=== PATIENT | female | born 1960 | race Caucasian/White ===

== ENCOUNTER 2016-07-24 20:56 | Emergency (ER) | payer OTHER ==
[~2016-07-24] VITALS: Ht 152.4 cm; Wt 66.0 kg
[~2016-07-24 20:56] MED LIST: VERA120T3 OR
[2016-07-24 20:58] VITALS: BP 198/108; PULSE 66; RESP 16; TEMP 98.1; O2SAT 96
[2016-07-25] MEDS ORDERED: ONDANSETRON HCL 4 MG/2 ML VIAL IV PUSH ONE
[2016-07-25] MEDS ORDERED: MORPHINE SULFATE 4 MG/ML INJ IV PUSH ONE
--- NOTE | 2016-07-25 00:48 | PD ---
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 States it is throbbing with photophobia and nausea. Denies it feels like her usual migraine. Took imitrex at home with no relieve. Pt requesting dilaudid but states morphine helps as well. States she is allergic to toradol. Pt has a neurologist that she can follow up with. 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) Hypertension: Yes Neurologic: Yes (AREVALO'S PALSY) Migraines: Yes Tetanus Vaccination: Unknown Influenza Vaccination: Yes ?: Not : 3 Para: 1 : 2 Tubal Ligation: Yes (2000) Past Surgical History Body Medical Devices: SUICIDAL IDEATIONS Hysterectomy: Yes Social History Alcohol Use: No Tobacco Use: Yes (06/25 PPD) Substance Use: No Allergies-Medications (Allergen,Severity, Reaction): Coded Allergies: Aspirin (Verified Allergy, Mild, 07/24/16) Ergotamine Tartrate (Verified Allergy, Mild, 07/24/16) Sulfa (Verified Allergy, Mild, 07/24/16) Toradol (Verified Allergy, Mild, 07/24/16) Reported Meds & Prescriptions Reported Meds & Active Scripts Active Review of Systems Except as stated in HPI: all other systems reviewed are Neg Physical Exam Narrative GENERAL: 56yo F not in distress. SKIN: Warm and dry. HEAD: Atraumatic. Normocephalic. EYES: Pupils 5mm and reactive to light bilaterally. ENT: No nasal bleeding or discharge. Mucous membranes pink and moist. NECK: Trachea midline. No JVD. CARDIOVASCULAR: Regular rate and rhythm. No murmur appreciated. RESPIRATORY: No accessory muscle use. Clear to auscultation. Breath sounds equal bilaterally. GASTROINTESTINAL: Abdomen soft, non-tender, nondistended. Hepatic and splenic margins not palpable. MUSCULOSKELETAL: No obvious deformities. No clubbing. No cyanosis. No edema. NEUROLOGICAL: Awake and alert. Pt with left arevalo's palsy which she stated has not changed for months and is somewhat improving. Muscle strength 5/5 in all extremities. Sensation intact. PSYCHIATRIC: Appropriate mood and affect; insight and judgment normal. Data Data Last Documented VS Vital Signs Date Time Temp Pulse Resp B/P Pulse Ox O2 Delivery O2 Flow Rate FiO2 07/24/16 23:45 54 16 99 Room Air 07/24/16 20:58 98.1 198/108 Orders Morphine Inj (Morphine Inj) (07/25/16 00:00) Ondansetron Inj (Zofran Inj) (07/25/16 00:00) Hydralazine Inj (Apresoline Inj) (07/25/16 01:00) MDM Medical Decision Making Medical Screen Exam Complete: Yes Emergency Medical Condition: Yes Differential Diagnosis Migraine headache vs. tension headache vs. malingering Narrative Course 56yo F with headache that feels like her usual migraine headache. Pt given morphine 4mg and zofran 4mg IV and headache has resolved. No red flags. Pt has neurologist that she can follow up as outpatient. BP was 149/94 before any medication so no blood pressure medication given. Diagnosis Primary Impression: Migraine headache Qualified Code: G43.909 - Migraine without status migrainosus, not intractable , unspecified migraine type Patient Instructions: General Instructions Departure Forms: Tests/Procedures Additional Instructions: Please follow up with your neurologist in 1-2 days. Return to the ED if symptoms worsen. Med/Other Pt SpecificInfo: Prescription(s) given Scripts Acetaminophen-Codeine (Tylenol-Codeine #3)300-30 mg Tab1 Tab PO Q6HR PRN (PAIN) #7 TAB Ref 0 Prov:Kennedi Humphreys DO 07/25/16 Promethazine (Phenergan)25 Mg Tab25 Mg PO Q6H PRN (Nausea/Vomiting) #10 TAB Ref 0 Prov:Kennedi Humphreys DO 07/25/16 Disposition: 01 DISCHARGE HOME Condition: Stable Kennedi Humphreys DO Jul 25, 2016 00:48
[2016-07-25 00:57] VITALS: BP 149/94; PULSE 53; RESP 16; O2SAT 97
[2016-07-25] MEDS ORDERED: hydrALAZINE HCL 20 MG/ML VIAL IV PUSH ONE (01:00)
[2016-07-25] MEDS ORDERED: TYLETAB34 PO (01:00)
[2016-07-25] MEDS ORDERED: PROM25TA5 PO (01:00)
== END 2016-07-25 01:23 | disposition home or self-care (01) ==
LOC: NEPA 20:56
DX: G43.909 Migraine, unspecified, not intractable, without status migrainosus (principal)
CPT/HCPCS: 96374; 96375; 99283; J2270; J2405

== ENCOUNTER 2016-08-02 15:21 | Emergency (ER) | payer OTHER ==
[~2016-08-02] VITALS: Ht 157.5 cm; Wt 68.0 kg
[~2016-08-02 15:21] MED LIST changes: +PROM25TA5 PO; +TYLETAB34 PO; -VERA120T3 OR
[2016-08-02 15:22] VITALS: BP 181/103; PULSE 76; RESP 14; TEMP 98.2; O2SAT 95
[2016-08-02] MEDS ORDERED: SODIUM CHLORIDE 0.9% FLUSH 5 ML FLUSH IVF PRN (16:00)
[2016-08-02] MEDS ORDERED: MORPHINE SULFATE 8 MG/ML INJ IV PUSH ONE (16:00)
[2016-08-02] MEDS ORDERED: PROMETHAZINE INJ 25 MG/ML VIAL IM ONE (16:00)
--- NOTE | 2016-08-02 16:06 | PD ---
HPI Chief Complaint: Headache Time Seen by Provider: 16:04 Travel History International Travel<30 days: No Contact w/Intl Traveler<30days: No Traveled to known affect area: No History of Present Illness HPI 56-year-old female coming in with history of Arevalo's palsy on the left as well as migraine syndrome, presents with sided headache since 3 AM this morning which is gotten progressively worse through the day. Patient denies nausea, vomiting, or visual changes. No specific neurological deficit is noted , although the Arevalo's palsy is present on the left. Patient has positive photophobia which is typical for her migraines, and is claiming that the states a "cluster headache" that began as a migraine. Patient is noted to be somewhat hypertensive with a blood pressure 180/110. She states her pain is a 10 over 10 which is unusual for her. She states Phenergan usually works for her headache issues. She denies any recent illness, no fever, chills, or other constitutional symptoms. She has allergies to aspirin, ergotamine, sulfa, and Toradol. 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) Hypertension: Yes Neurologic: Yes (AREVALO'S PALSY) Migraines: Yes ?: Not : 3 Para: 1 : 2 Tubal Ligation: Yes (2000) Past Surgical History Body Medical Devices: SUICIDAL IDEATIONS Hysterectomy: Yes Social History Alcohol Use: No Tobacco Use: Yes (06/25 PPD) Substance Use: No Allergies-Medications (Allergen,Severity, Reaction): Coded Allergies: Aspirin (Verified Allergy, Mild, 08/02/16) Ergotamine Tartrate (Verified Allergy, Mild, 08/02/16) Sulfa (Verified Allergy, Mild, 08/02/16) Toradol (Verified Allergy, Mild, 08/02/16) Reported Meds & Prescriptions Reported Meds & Active Scripts Active Reported Geodon (Ziprasidone) 80 Mg Cap Unknown Dose PO BID Klonopin (Clonazepam) 0.5 Mg Tab 0.5 Mg PO TID Physical Exam Narrative GENERAL: Patient appears in moderate distress. SKIN: Warm and dry. Normal color. Normal turgor. HEAD: Atraumatic. Normocephalic. Patient placed headache is not reproducible with palpation or percussion. EYES: Pupils equal and round. Patient has positive photophobia. No scleral icterus. No injection or drainage. ENT: No nasal bleeding or discharge. Mucous membranes pink and moist. Pharynx is normal. Airway is patent. TMs are clear. No sinus pain with palpation or percussion. NECK: Trachea midline. No JVD. Supple and nontender. CARDIOVASCULAR: Regular rate and rhythm. RESPIRATORY: No accessory muscle use. Clear to auscultation. Breath sounds equal bilaterally. GASTROINTESTINAL: Abdomen soft, non-tender, nondistended. Hepatic and splenic margins not palpable. MUSCULOSKELETAL: Extremities without clubbing, cyanosis, or edema. No obvious deformities. NEUROLOGICAL: Awake and alert. Patient is mild left-sided facial droop which she states is chronic from previous Arevalo's Palsy. Motor grossly within normal limits. Five out of 5 muscle strength in the arms and legs. Normal speech. PSYCHIATRIC: Appropriate mood and affect; insight and judgment normal. Data Data Last Documented VS Vital Signs Date Time Temp Pulse Resp B/P Pulse Ox O2 Delivery O2 Flow Rate FiO2 08/02/16 19:12 60 18 123/73 95 Nasal Cannula 2 08/02/16 15:22 98.2 Orders Complete Blood Count With Diff (08/02/16 15:54) Comprehensive Metabolic Panel (08/02/16 15:54) Prothrombin Time / Inr (Pt) (08/02/16 15:54) Act Partial Throm Time (Ptt) (08/02/16 15:54) Ct Brain W/O Iv Contrast(Rout) (08/02/16 15:54) Ecg Monitoring (08/02/16 15:54) Iv Access Insert/Monitor (08/02/16 15:54) Oximetry (08/02/16 15:54) Sodium Chloride 0.9% Flush (Ns Flush) (08/02/16 16:00) Morphine Inj (Morphine Inj) (08/02/16 16:00) Promethazine Inj (Phenergan Inj) (08/02/16 16:00) Hydromorphone Pf Inj (Dilaudid Pf Inj) (08/02/16 17:30) Ondansetron Inj (Zofran Inj) (08/02/16 18:30) Prochlorperazine Inj (Compazine Inj) (08/02/16 18:30) Diphenhydramine Inj (Benadryl Inj) (08/02/16 18:30) Hydromorphone Pf Inj (Dilaudid Pf Inj) (08/02/16 18:30) Labs Laboratory Tests Test 08/02/16 16:20 White Blood Count 11.1 TH/MM3 Red Blood Count 3.61 MIL/MM3 Hemoglobin 12.7 GM/DL Hematocrit 35.6 % Mean Corpuscular Volume 98.7 FL Mean Corpuscular Hemoglobin 35.3 PG Mean Corpuscular Hemoglobin 35.7 % Concent Red Cell Distribution Width 12.9 % Platelet Count 295 TH/MM3 Mean Platelet Volume 8.7 FL Neutrophils (%) (Auto) 66.7 % Lymphocytes (%) (Auto) 24.0 % Monocytes (%) (Auto) 6.2 % Eosinophils (%) (Auto) 2.1 % Basophils (%) (Auto) 1.0 % Neutrophils # (Auto) 7.4 TH/MM3 Lymphocytes # (Auto) 2.7 TH/MM3 Monocytes # (Auto) 0.7 TH/MM3 Eosinophils # (Auto) 0.2 TH/MM3 Basophils # (Auto) 0.1 TH/MM3 CBC Comment DIFF FINAL Differential Comment Prothrombin Time 10.1 SEC Prothromb Time International 0.9 RATIO Ratio Activated Partial 29.2 SEC Thromboplast Time Sodium Level 130 MEQ/L Potassium Level 4.1 MEQ/L Chloride Level 95 MEQ/L Carbon Dioxide Level 25.6 MEQ/L Anion Gap 9 MEQ/L Blood Urea Nitrogen 6 MG/DL Creatinine 0.85 MG/DL Estimat Glomerular Filtration 69 ML/MIN Rate Random Glucose 85 MG/DL Calcium Level 8.4 MG/DL Total Bilirubin 0.2 MG/DL Aspartate Amino Transf 19 U/L (AST/SGOT) Alanine Aminotransferase 22 U/L (ALT/SGPT) Alkaline Phosphatase 140 U/L Total Protein 7.1 GM/DL Albumin 3.3 GM/DL [facility] Medical Decision Making Medical Screen Exam Complete: Yes Emergency Medical Condition: Yes Differential Diagnosis Migraine. Headache. Intracranial bleed. Nausea. Narrative Course Patient is felt to be medically stable at time of exam. Patient is discussed with Dr. Jefferson. She labs ordered including CBC, and CMP. CT of the head is ordered. Patient is given 25 mg Phenergan IM. IV access is obtained patient is given [address] of the head shows no acute process per radiology. 1700 hrs. patient is reassessed and felt to be improved in terms of her nausea, but her headache remains an 8/10. Patient is given 1 mg Dilaudid IV. 1815 hrs. patient is reassessed with little improvement in her headache. There remains an 8/10. She states her nausea is return. I questioned the patient about sumatriptan which she states she took her 2 doses earlier today. Patient is given 25 mg Benadryl IV, 4 mg IV Zofran, and milligrams Compazine IV , and an additional 1 mg hydromorphone IV. Patient is monitored for 1 hour, and reexamined and felt to be stable for discharge. Diagnosis Primary Impression: Migraine headache Qualified Code: G43.009 - Migraine without aura and without status migrainosus , not intractable Referrals: Neurologist Patient Instructions: Narcotic given in the ED, General Instructions Med/Other Pt SpecificInfo: No Change to Meds Disposition: 01 DISCHARGE HOME Condition: Stable Terry Walters Aug 02, 2016 16:06
[2016-08-02] MEDS ORDERED: GEOD80CA PO (16:12)
[2016-08-02] MEDS ORDERED: CLON.5 PO (16:12)
[2016-08-02 16:33] LABS: AUTOMATED NEUTROPHIL # 7.4 TH/MM3 (1.8-7.7); BASOPHIL # 0.1 TH/MM3 (0-0.2); EOSINOPHIL # 0.2 TH/MM3 (0-0.4); EOSINOPHIL % 2.1 % (0.0-4.0); HEMATOCRIT 35.6 % (35.0-46.0); HEMO FLAGS DIFF FINAL; LYMPHOCYTE # 2.7 TH/MM3 (1.0-4.8); MEAN CELL VOLUME 98.7 FL (80.0-100.0); MEAN CORPUSCULAR HEMOGLOBIN 35.3 PG (27.0-34.0); MEAN CORPUSCULAR HGB CONC 35.7 % (32.0-36.0); MONO % 6.2 % (0.0-8.0); NEUT % 66.7 % (16.0-70.0); PLATELET COUNT 295 TH/MM3 (150-450); RED BLOOD COUNT 3.61 MIL/MM3 (4.00-5.30); RED CELL DISTRIBUTION WIDTH 12.9 % (11.6-17.2); WHITE BLOOD COUNT 11.1 TH/MM3 (4.0-11.0)
--- NOTE | 2016-08-02 16:34 | RADRPT ---
EXAM DATE/TIME: 08/02/2016 16:25 [facility] COMPARISON: No previous studies available for comparison. INDICATIONS : Left sided facial droop for 10 days; cephalgia today. RADIATION DOSE: 43.05 CTDIvol (mGy) MEDICAL HISTORY : Hypertension. Diabetes mellitus type 2. Penrose palsy. SURGICAL HISTORY : None. ENCOUNTER: Initial ACUITY: 2 weeks PAIN SCALE: 3/10 LOCATION: cranial TECHNIQUE: Multiple contiguous axial images were obtained of the head. Using automated exposure control and adjustment of the mA and/or kV according to patient size, radiation dose was kept as low as reasonably achievable to obtain optimal diagnostic quality images. FINDINGS: CEREBRUM: The ventricles are normal for age. No evidence of midline shift, mass lesion, hemorrha ge or acute infarction. No extra-axial fluid collections are seen. POSTERIOR FOSSA: The cerebellum and brainstem are intact. The 4th ventricle is midline. The cer ebellopontine angle is unremarkable. EXTRACRANIAL: The visualized portion of the orbits is intact. SKULL: The calvaria is intact. No evidence of skull fracture. CONCLUSION: Unremarkable noncontrast study. Rangel Stevens MD on August 02, 2016 at 16:30 Board Certified Radiologist. This report was verified electronically.
[2016-08-02 16:40] VITALS: BP 157/103; PULSE 62; RESP 14; O2SAT 95
[2016-08-02 16:46] LABS: APTT (PATIENT) 29.2 SEC (24.3-30.1); INTERNATIONAL NORMALIZED RATIO 0.9 RATIO; PROTHROMBIN TIME - PATIENT 10.1 SEC (9.8-11.6)
[2016-08-02 17:17] LABS: ANION GAP 9 MEQ/L (5-15); BICARBONATE 25.6 MEQ/L (21.0-32.0); BLOOD UREA NITROGEN 6 MG/DL (7-18); CHLORIDE 95 MEQ/L (98-107); GLOMERULAR FILTRATION RATE 69 ML/MIN (>89); POTASSIUM 4.1 MEQ/L (3.5-5.1); SODIUM (NA) 130 MEQ/L (136-145)
[2016-08-02 17:20] LABS: ALKALINE PHOSPHATASE 140 U/L (45-117); ALT (GPT) 22 U/L (10-53); AST (GOT) 19 U/L (15-37); TOTAL BILIRUBIN ADULT 0.2 MG/DL (0.2-1.0)
[2016-08-02] MEDS ORDERED: HYDROmorphone HCL PF 1 MG/ML VIAL IV PUSH ONE (17:30)
[2016-08-02 18:00] VITALS: BP 169/107; PULSE 61; RESP 14; O2SAT 95
[2016-08-02 18:30] VITALS: BP 133/95; PULSE 61; RESP 14; O2SAT 95
[2016-08-02] MEDS ORDERED: PROCHLORPERAZINE INJ 10 MG/2 ML VIAL IVP ONE (18:30)
[2016-08-02] MEDS ORDERED: HYDROmorphone HCL PF 1 MG/ML VIAL IVS ONE (18:30)
[2016-08-02] MEDS ORDERED: ONDANSETRON HCL 4 MG/2 ML VIAL IVP ONE (18:30)
[2016-08-02] MEDS ORDERED: diphenhydrAMINE HCL 50 MG/ML VIAL IVP ONE (18:30)
[2016-08-02 19:12] VITALS: BP 123/73; PULSE 60; RESP 18; O2SAT 95
[2016-08-03] MEDS ORDERED: SUMA6P SQ (07:47)
== END 2016-08-02 19:39 | disposition home or self-care (01) ==
LOC: NEPB 15:21
DX: G43.009 Migraine without aura, not intractable, without status migrainosus (principal); G51.0 Bell's palsy; H53.149 Visual discomfort, unspecified; I10 Essential (primary) hypertension; E11.9 Type 2 diabetes mellitus without complications; F17.210 Nicotine dependence, cigarettes, uncomplicated
CPT/HCPCS: 70450; 80053; 85025; 85610; 85730; 96372; 96374; 96375; 96376; 99284; J0780; J1170; J1200; J2270; J2405; J2550

== ENCOUNTER 2016-08-03 07:19 | Observation (INO) | payer OTHER ==
[~2016-08-03] VITALS: Ht 160 cm; Wt 66.0 kg
[2016-08-03] VITALS (7 sets, daily range): BP systolic 130–181; BP diastolic 73–96; PULSE 60–91; RESP 15–20; TEMP 97.7–98.2; O2SAT 71–100
[~2016-08-03 07:19] MED LIST changes: +CLON.5 PO; +GEOD80CA PO; -PROM25TA5 PO; -TYLETAB34 PO
[2016-08-03] MEDS ORDERED: SODIUM CHLOR 0.9% 1000 ML INJ 1,000 ML IV SCH (07:46)
[2016-08-03] MEDS ORDERED: SUMA6P SQ (07:47)
--- NOTE | 2016-08-03 07:59 | PD ---
HPI Chief Complaint: Headache Time Seen by Provider: 07:41 Travel History International Travel<30 days: No Contact w/Intl Traveler<30days: No Traveled to known affect area: No History of Present Illness HPI 56-year-old female with history of migraine headaches, Arita's palsy, here for evaluation of migraine headache. The patient states that she gets daily migraines and takes Imitrex for them. Pain is typical for her usual migraine, described as a stabbing sensation behind her right eye that radiates over her right head. She tried taking her Imitrex, however did not have any relief of the pain. Pain is severe, constant, associated with photophobia and nausea. Not thunderclap in onset. This is the patient's third visit in the last 10 days for migraine headache. She was seen in the emergency department yesterday and had a CT head which was unremarkable. She was treated in the emergency department and discharged home. She denies fevers or chills. Arita's palsy noted on previous visits with left facial droop. She has a neurologist at the [place] [facility] with whom she has a follow-up appointment within 2 weeks. 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) Hypertension: Yes Neurologic: Yes (ARITA'S PALSY) Migraines: Yes Tetanus Vaccination: > 5 Years : 3 Para: 1 Miscarriage: 0 : 2 Tubal Ligation: Yes (2000) Past Surgical History Surgical History: No Previous Surgery Body Medical Devices: SUICIDAL IDEATIONS Gynecologic Surgery: Yes (TUBAL LIGATION) Hysterectomy: Yes (TUBAL LIGATION) Social History Alcohol Use: No Tobacco Use: No (WEARS A PATCH ) Substance Use: No Allergies-Medications (Allergen,Severity, Reaction): Coded Allergies: Aspirin (Verified Allergy, Mild, 08/03/16) Ergotamine Tartrate (Verified Allergy, Mild, 08/03/16) Sulfa (Verified Allergy, Mild, 08/03/16) Toradol (Verified Allergy, Mild, 08/03/16) Reported Meds & Prescriptions Reported Meds & Active Scripts Active Reported Imitrex Inj (Sumatriptan Succinate) 6 Mg/0.5 Ml Inj 6 Mg SQ ONCE PRN May repeat dose in 1 hour if needed. Geodon (Ziprasidone) 80 Mg Cap Unknown Dose PO BID Klonopin (Clonazepam) 0.5 Mg Tab 0.5 Mg PO TID Review of Systems Except as stated in HPI: all other systems reviewed are Neg Physical Exam Narrative GENERAL: Well-developed, well-nourished, awake, alert, acute size closed, no acute distress. SKIN: Warm and dry. HEAD: Atraumatic. Normocephalic. EYES: Pupils equal, round, 3 mm, reactive to light. No scleral icterus. No injection or drainage. ENT: No nasal bleeding or discharge. Mucous membranes pink and moist. NECK: Trachea midline. No JVD. No nuchal rigidity. CARDIOVASCULAR: Regular rate and rhythm. RESPIRATORY: No accessory muscle use. Clear to auscultation. Breath sounds equal bilaterally. GASTROINTESTINAL: Abdomen soft, non-tender, nondistended. MUSCULOSKELETAL: No obvious deformities. No clubbing. No cyanosis. No edema. NEUROLOGICAL: Awake and alert. Left facial droop. Motor grossly within normal limits. Normal speech. PSYCHIATRIC: Appropriate mood and affect; insight and judgment normal. Data Data Last Documented VS Vital Signs Date Time Temp Pulse Resp B/P Pulse Ox O2 Delivery O2 Flow Rate FiO2 08/03/16 07:48 100 Room Air 08/03/16 07:37 97.7 72 20 151/79 Orders Basic Metabolic Panel (Bmp) (08/03/16 07:46) Complete Blood Count With Diff (08/03/16 07:46) Prothrombin Time / Inr (Pt) (08/03/16 07:46) Act Partial Throm Time (Ptt) (08/03/16 07:46) Iv Access Insert/Monitor (08/03/16 07:46) Ecg Monitoring (08/03/16 07:46) Oximetry (08/03/16 07:46) Morphine Inj (Morphine Inj) (08/03/16 08:00) Sodium Chlor 0.9% 1000 Ml Inj (Ns 1000 M (08/03/16 07:46) Sodium Chloride 0.9% Flush (Ns Flush) (08/03/16 08:00) Metoclopramide Inj (Reglan Inj) (08/03/16 08:00) Influenzae A/B Antigen (08/03/16 08:48) Lumbar Puncture (08/03/16 08:51) Csf Cell Count + Differential (08/03/16 08:51) Glucose, Csf (08/03/16 08:51) Total Protein, Csf (08/03/16 08:51) Csf Culture And Gram Stain (08/03/16 08:51) Ondansetron Inj (Zofran Inj) (08/03/16 10:35) Vital Signs (Adult) .As directed (08/03/16 11:49) Activity Bed Rest (08/03/16 11:49) ^ Notify Radiology (08/03/16 11:49) ^ Encourage Fluids (08/03/16 11:49) ^ Anticoagulant Alert (08/03/16 11:49) Hydromorphone Pf Inj (Dilaudid Pf Inj) (08/03/16 12:45) Mra Brain W/O Contrast (Cow) (08/03/16 ) Mri Brain W&W/O Contrast (08/03/16 ) Labs Laboratory Tests Test 08/03/16 08/03/16 08:00 10:54 White Blood Count 18.7 TH/MM3 Red Blood Count 3.37 MIL/MM3 Hemoglobin 11.7 GM/DL Hematocrit 33.2 % Mean Corpuscular Volume 98.6 FL Mean Corpuscular Hemoglobin 34.6 PG Mean Corpuscular Hemoglobin 35.1 % Concent Red Cell Distribution Width 13.0 % Platelet Count 285 TH/MM3 Mean Platelet Volume 8.7 FL Neutrophils (%) (Auto) 82.0 % Lymphocytes (%) (Auto) 11.6 % Monocytes (%) (Auto) 5.0 % Eosinophils (%) (Auto) 0.9 % Basophils (%) (Auto) 0.5 % Neutrophils # (Auto) 15.3 TH/MM3 Lymphocytes # (Auto) 2.2 TH/MM3 Monocytes # (Auto) 0.9 TH/MM3 Eosinophils # (Auto) 0.2 TH/MM3 Basophils # (Auto) 0.1 TH/MM3 CBC Comment DIFF FINAL Differential Comment Prothrombin Time 10.1 SEC Prothromb Time International 0.9 RATIO Ratio Activated Partial 27.7 SEC Thromboplast Time Sodium Level 126 MEQ/L Potassium Level 3.4 MEQ/L Chloride Level 93 MEQ/L Carbon Dioxide Level 24.2 MEQ/L Anion Gap 9 MEQ/L Blood Urea Nitrogen 4 MG/DL Creatinine 0.80 MG/DL Estimat Glomerular Filtration 74 ML/MIN Rate Random Glucose 103 MG/DL Calcium Level 8.4 MG/DL CSF Volume (Tube 1) 3.0 ML CSF Supernatant Color (tube 1) CLEAR CSF Gross Blood (Tube 1) 2+ CSF Volume (Tube 2) 2.6 ML CSF Supernatant Color (tube 2) CLEAR CSF Gross Blood (Tube 2) 1+ CSF Volume (Tube 3) 2.0 ML CSF Supernatant Color (tube 3) CLEAR CSF Gross Blood (Tube 3) 1+ CSF Volume (Tube 4) 1.5 ML CSF Supernatant Color (tube 4) CLEAR CSF Gross Blood (Tube 4) 1+ CSF WBC (Tube 4) 47 /MM3 CSF RBC (Tube 4) 3010 /MM3 CSF Neutrophils 86 % CSF Lymphocytes 10 % CSF Monocytes 3 % CSF Histiocytes 1 % CSF Glucose 67 MG/DL CSF Total Protein 55.2 MG/DL MDM Medical Decision Making Medical Screen Exam Complete: Yes Emergency Medical Condition: Yes Medical Record Reviewed: Yes Differential Diagnosis Migraine headache, tension headache, cluster headache, SAH/meningitis/ encephalitis unlikely Narrative Course Initial vital signs show heart rate 91, blood pressure 181/96, pulse ox 98% on room air, oral temp of 98.2F. CBC is remarkable for WBC 18.7 with 82% neutrophils which is increased from 11.1 and 66% neutrophils yesterday. BMP is remarkable for sodium 126, chloride 93, otherwise unremarkable. The patient was given a liter of normal saline IV, IV morphine, and IV Reglan, and continues to have a severe headache. Given her leukocytosis with continued headache, I advised that the patient have an LP to rule out meningitis. She is amenable to this. Interventional radiology team contacted and they will perform the LP as she is slightly overweight with poor landmarks and will be a difficult LP at the bedside. LP performed by interventional radiology. CSF in the fourth tube shows 47 wbc's, 3000 RBCs, 67 glucose, 55 total protein, clear supernatant. CSF Gram stain shows no organisms. Patient is still having a severe headache. She was given another dose of narcotic pain medication. Case discussed with on-call neurosurgeon Dr. Broderick for concern for possible subarachnoid hemorrhage. She does not believe that this is a subarachnoid hemorrhage, however she is requesting MRI and MRA brain. Patient be admitted for overnight observation for intractable headache and to rule out subarachnoid hemorrhage. Case discussed with hospitalist Dr. Herrera who will admit the patient to his service. Diagnosis Primary Impression: Intractable headache Qualified Code: R51 - Intractable headache, unspecified chronicity pattern, unspecified headache type Admitting Information Admitting Physician Requests: Isaías Arias MD Aug 03, 2016 07:59
[2016-08-03] MEDS ORDERED: SODIUM CHLORIDE 0.9% FLUSH 5 ML FLUSH IVF PRN (08:00)
[2016-08-03] MEDS ORDERED: METOCLOPRAMIDE HCL 10 MG/2 ML VIAL IV PUSH ONE (08:00)
[2016-08-03] MEDS ORDERED: MORPHINE SULFATE 4 MG/ML INJ IV PUSH ONE (08:00)
[2016-08-03 08:18] LABS: AUTOMATED NEUTROPHIL # 15.3 TH/MM3 (1.8-7.7); BASOPHIL # 0.1 TH/MM3 (0-0.2); BASOPHIL % 0.5 % (0.0-2.0); EOSINOPHIL # 0.2 TH/MM3 (0-0.4); EOSINOPHIL % 0.9 % (0.0-4.0); HEMATOCRIT 33.2 % (35.0-46.0); HEMO FLAGS DIFF FINAL; LYMPH % 11.6 % (9.0-44.0); LYMPHOCYTE # 2.2 TH/MM3 (1.0-4.8); MEAN CELL VOLUME 98.6 FL (80.0-100.0); MEAN CORPUSCULAR HEMOGLOBIN 34.6 PG (27.0-34.0); MEAN CORPUSCULAR HGB CONC 35.1 % (32.0-36.0); PLATELET COUNT 285 TH/MM3 (150-450); RED BLOOD COUNT 3.37 MIL/MM3 (4.00-5.30); WHITE BLOOD COUNT 18.7 TH/MM3 (4.0-11.0)
[2016-08-03 08:29] LABS: APTT (PATIENT) 27.7 SEC (24.3-30.1); INTERNATIONAL NORMALIZED RATIO 0.9 RATIO; PROTHROMBIN TIME - PATIENT 10.1 SEC (9.8-11.6)
[2016-08-03 08:41] LABS: BICARBONATE 24.2 MEQ/L (21.0-32.0); POTASSIUM 3.4 MEQ/L (3.5-5.1)
[2016-08-03] MEDS ORDERED: ONDANSETRON HCL 4 MG/2 ML VIAL ONE (10:35)
--- NOTE | 2016-08-03 11:51 | PD.RAD ---
Post Procedure Progress Note Pre Procedure Diagnosis: (1) Migraine headache Post Procedure Diagnosis: (1) Migraine headache Procedure Date: Aug 03, 2016 Supervising Radiologist: Juan Alberto Irene Proceduralist/Assist: Janette Ferraro, RT(R), Margie Perez RT(R)(CV) Anesthesia: Local Plan of Activity Patient to Unit: Nursing Unit Patient Condition: Good See PACS Report for procedural detail/treatment Spinal Procedure Lumbar Puncture L3-L4 Fluid Removal (CCs): 10 Fluid Description: Clear Juan Alberto Irene MD Aug 03, 2016 11:51
[2016-08-03 12:20] LABS: SUPERNATE COLOR TUBE #1 CLEAR (CLEAR)
[2016-08-03 12:21] LABS: GROSS BLOOD TUBE #1 2+ (0); GROSS BLOOD TUBE #2 1+ (0); SUPERNATE COLOR TUBE #2 CLEAR (CLEAR); VOLUME TUBE # 2 2.6 ML
[2016-08-03 12:22] LABS: GROSS BLOOD TUBE #3 1+ (0); GROSS BLOOD TUBE #4 1+ (0); SUPERNATE COLOR TUBE #3 CLEAR (CLEAR); SUPERNATE COLOR TUBE #4 CLEAR (CLEAR); VOLUME TUBE # 4 1.5 ML
[2016-08-03 12:23] LABS: CSF LYMPHOCYTES 10 %; CSF MONOCYTES 3 %; CSF NEUTROPHILS 86 %; WBC TUBE #4 47 /MM3 (0-10)
--- NOTE | 2016-08-03 12:31 | RADRPT ---
EXAM DATE/TIME: 08/03/2016 10:53 [facility] COMPARISON: No previous studies available for comparison. INDICATIONS : Migraine headaches. MEDICAL HISTORY : 1. Arita Palsy 2. TIA 3. Migraine headachs 4. HTN SURGICAL HISTORY : 1.Tubal ligation ENCOUNTER: Initial ACUITY: 1 week PAIN SCORE: 5/10 LOCATION: cranial LUMBAR PUNCTURE TIME: 1051 hours FLUORO TIME: 1.9 minutes ACCESS LEVEL: L3-4 OPENING PRESSURE: 19cm of water Not requested. FLUID: 10 cc of clear CSF was collected and sent to the laboratory for analysis. PROCEDURE : 1. Fluoroscopic guided lumbar puncture. 2. Recording of opening pressure. The risks, benefits and alternatives to the procedure were explained and verbal and written consent w as obtained. The site was prepped in sterile fashion. Full sterile technique was used, including ca p, mask, sterile gloves and gown and a large sterile sheet. Hand hygiene and 2% chlorhexidine and/or betadine/alcohol prep was utilized per protocol for cutaneous antisepsis. The skin and subcutaneous tissues were infiltrated with local anesthetic solution. With fluoroscopic guidance the lumbar thecal sac was punctured at the above level described above and the opening pressure was recorded. The above described fluid was removed without difficulty. The patient tolerated the procedure well and there were no complications. CONCLUSION: Uncomplicated fluoroscopically guided lumbar puncture with pressures as above. Juan Alberto Irene MD on August 03, 2016 at 12:28 Board Certified Radiologist. This report was verified electronically.
[2016-08-03] MEDS ORDERED: HYDROmorphone HCL PF 1 MG/ML VIAL IV PUSH ONE (12:45)
[2016-08-03] MEDS ORDERED: ACETAMINOPHEN 325 MG TAB PO PRN ×2 (14:00)
[2016-08-03] MEDS ORDERED: NALOXONE HCL 0.4 MG/ML AMP IV PRN (14:00)
[2016-08-03] MEDS ORDERED: SODIUM CHLORIDE 0.9% FLUSH 5 ML FLUSH FLUSH PRN (14:00)
[2016-08-03] MEDS ORDERED: MAGNESIUM HYDROXIDE SUSP 30 ML CUP PO PRN (14:00)
[2016-08-03] MEDS ORDERED: HYDROmorphone HCL PF 1 MG/ML VIAL IV PRN (14:00)
--- NOTE | 2016-08-03 17:08 | RADRPT ---
EXAM DATE/TIME: 08/03/2016 15:40 [facility] COMPARISON: No previous studies available for comparison. INDICATIONS : Cephalgia. MEDICAL HISTORY : Hypertension. SURGICAL HISTORY : Tubal ligation. ENCOUNTER: Initial ACUITY: 2 day PAIN SCORE: 3/10 LOCATION: head Please note a normal MRA of the brain does not entirely exclude the possibility of a small aneurysm, nor the possibility of distal intracranial vessel disease. TECHNIQUE: 3D time of flight MRA was performed. Source images, multiplanar STS MIP, and 3D volume MIP reconstru ctions were reviewed. FINDINGS: There is excellent visualization of the major intracranial arteries out to the second-order branch ve ssels. There is no evidence for aneurysm, vessel truncation or stenosis, and no evidence for vascula r malformation. Patent bilateral posterior communicating arteries are noted. CONCLUSION: Patent bilateral posterior communicating arteries. No significant stenosis, occlusion or aneurysm. Sergei Darby MD on August 03, 2016 at 17:05 Board Certified Radiologist. This report was verified electronically.
--- NOTE | 2016-08-03 17:11 | RADRPT ---
EXAM DATE/TIME: 08/03/2016 15:40 [place] COMPARISON: No previous studies available for comparison. INDICATIONS : Cephalgia. CONTRAST: 16 cc Omniscan (gadodiamide) IV MEDICAL HISTORY : Hypertension. SURGICAL HISTORY : Tubal ligation. ENCOUNTER: Initial ACUITY: 2 day PAIN SCORE: 3/10 LOCATION: Head TECHNIQUE: Multiplanar, multisequence MRI of the brain was performed both prior to and following the administrat ion of paramagnetic contrast. FINDINGS: CEREBRUM: The ventricles are normal for age. No evidence of midline shift, mass lesion, hemorrhage or acute in farction. No extraaxial fluid collections are seen. The pituitary gland and suprasellar cistern are normal in configuration. WHITE MATTER: Minimal periventricular and subcortical white matter small vessel ischemic changes are noted. POSTERIOR FOSSA: The cerebellum and brainstem are intact. The 4th ventricle is midline. The cerebellopontine angle is unremarkable. The cerebellar tonsils are normal in position. DIFFUSION IMAGING: No focal areas of restricted diffusion are seen. No evidence of acute infarction. EXTRACRANIAL: The visualized portions of the orbits are unremarkable. Tiny air-fluid level is noted within the left sphenoid sinus. POST-CONTRAST: No abnormal areas of parenchymal or dural enhancement. No evidence of blood-brain barrier breakdown. CONCLUSION: 1. Minimal periventricular and subcortical white matter small vessel ischemic changes are noted. 2. No acute infarct, acute hemorrhage, mass effect or extra axial fluid collections. 3. Tiny air-fluid level within left sphenoid sinus. Sergei Darby MD on August 03, 2016 at 17:07 Board Certified Radiologist. This report was verified electronically.
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
[2016-08-03] MEDS ORDERED: GADODIAMIDE PF 287 MG/ML 20 ML VIAL (for RAD MRI) IV ONE (18:05)
[2016-08-03] MEDS ORDERED: POTASSIUM CHLORIDE 20 MEQ CONTROLLED RELEASE TAB PO ONE (18:30)
[2016-08-03] MEDS: SODIUM CHLORIDE 0.9% FLUSH 5 ML FLUSH FLUSH SCH (18:43)
[2016-08-03] MEDS: NS + KCL 20 MEQ INJ 1,000 ML IV SCH (18:51)
[2016-08-03] MEDS: PROMETHAZINE INJ 25 MG/ML VIAL IM PRN (21:29)
[2016-08-03] MEDS: HYDROmorphone HCL PF 1 MG/ML VIAL IV PRN (21:30)
[2016-08-04] MEDS: HYDROmorphone HCL PF 1 MG/ML VIAL IV PRN ×3 (01:05→09:58)
[2016-08-04] MEDS: NS + KCL 20 MEQ INJ 1,000 ML IV SCH (03:57)
[2016-08-04 08:00] VITALS: BP 123/87; PULSE 74; RESP 16; TEMP 97.6; O2SAT 94
[2016-08-04 08:23] LABS: AUTOMATED NEUTROPHIL # 8.7 TH/MM3 (1.8-7.7); BASOPHIL # 0.1 TH/MM3 (0-0.2); BASOPHIL % 0.9 % (0.0-2.0); EOSINOPHIL # 0.3 TH/MM3 (0-0.4); EOSINOPHIL % 2.1 % (0.0-4.0); HEMATOCRIT 33.7 % (35.0-46.0); HEMO FLAGS DIFF FINAL; LYMPH % 23.5 % (9.0-44.0); LYMPHOCYTE # 3.1 TH/MM3 (1.0-4.8); MEAN CELL VOLUME 99.4 FL (80.0-100.0); MEAN CORPUSCULAR HEMOGLOBIN 35.2 PG (27.0-34.0); MEAN CORPUSCULAR HGB CONC 35.4 % (32.0-36.0); MONO % 7.4 % (0.0-8.0); NEUT % 66.1 % (16.0-70.0); PLATELET COUNT 289 TH/MM3 (150-450); RED BLOOD COUNT 3.39 MIL/MM3 (4.00-5.30); WHITE BLOOD COUNT 13.2 TH/MM3 (4.0-11.0)
--- NOTE | 2016-08-04 08:49 | HHI.PR ---
Subjective Remarks Follow-up intractable headache, hyponatremia. The patient states that she still has a headache. She does feel better overall. Objective Vitals Vital Signs Date Time Temp Pulse Resp B/P Pulse Ox O2 Delivery O2 Flow Rate FiO2 08/03/16 21:24 75 20 158/87 95 Room Air 08/03/16 18:41 74 20 148/78 Room Air 08/03/16 16:43 80 18 130/90 99 Room Air 08/03/16 14:37 60 18 142/73 98 Room Air Result Diagram: 08/04/16 0752 08/03/16 0800 Imaging Last Impressions Lumbar Puncture Fluoroscopy 08/03/16 0851 Signed Impressions: Service Date/Time: Wednesday, August 03, 2016 10:53 - CONCLUSION: Uncomplicated fluoroscopically guided lumbar puncture with pressures as above. Juan Alberto Irene MD Head Magnetic Resonance Angiography 08/03/16 0000 Signed Impressions: Service Date/Time: Wednesday, August 03, 2016 15:40 - CONCLUSION: Patent bilateral posterior communicating arteries. No significant stenosis, occlusion or aneurysm. Sergei Darby MD Brain MRI 08/03/16 0000 Signed Impressions: Service Date/Time: Wednesday, August 03, 2016 15:40 - CONCLUSION: 1. Minimal periventricular and subcortical white matter small vessel ischemic changes are noted. 2. No acute infarct, acute hemorrhage, mass effect or extra axial fluid collections. 3. Tiny air-fluid level within left sphenoid sinus. Sergei Darby MD Objective Remarks General: No acute distress. Heart: Regular rate and rhythm. No murmur. Lungs: Clear to auscultation bilaterally. No wheezes, rales, or rhonchi. Breathing is nonlabored. Abdomen: Soft, nontender, nondistended. Extremities: No lower extremity edema. Psych: Alert and oriented. Procedures None Urinary Catheter: No Vascular Central Line Catheter: No A/P Problem List: (1) Intractable headache ICD Code: R51 Status: Acute (2) Neuralgia ICD Code: M79.2 Status: Acute (3) Migraine headache ICD Code: G43.909 Status: Acute (4) Hyponatremia ICD Code: E87.1 Status: Acute (5) PTSD (post-traumatic stress disorder) ICD Code: F43.10 Status: Acute (6) Hypokalemia ICD Code: E87.6 Status: Acute (7) Leukocytosis ICD Code: D72.829 Status: Acute Assessment and Plan 1. Intractable headache, migraine headache, suboccipital neuralgia: Lumbar puncture is unremarkable. Appreciate neurosurgery recommendations. Continue pain control. MRI/MRA unremarkable. 2. PTSD, anxiety/depression: Continue home medications, Geodon and Klonopin. 3. Hyponatremia: Continue IV fluids. Labs are pending. 4. Hypokalemia: Repeat labs are pending this morning. 5. Leukocytosis: Uncertain etiology. No other apparent signs of infection. Improving. 6. DVT prophylaxis: SCDs, YAAKOV alvarado. Problem Qualifiers (1) Intractable headache: Qualified Code: R51 - Intractable headache, unspecified chronicity pattern, unspecified headache type Salomón Herrera MD Aug 04, 2016 08:48
[2016-08-04] MEDS: SODIUM CHLORIDE 0.9% FLUSH 5 ML FLUSH FLUSH SCH (09:58)
[2016-08-04 12:00] VITALS: BP 127/83; PULSE 76; RESP 18; TEMP 98.7; O2SAT 93
[2016-08-04] MEDS: PROMETHAZINE INJ 25 MG/ML VIAL IM PRN (12:18)
[2016-08-04 13:39] LABS: BICARBONATE 27.2 MEQ/L (21.0-32.0)
[2016-08-04] MEDS ORDERED: PROM12.54 PO (14:20)
--- NOTE | 2016-08-04 14:21 | HHI.DCPOC ---
Discharge Care Plan Diagnosis: (1) Migraine headache (2) Hyponatremia (3) Neuralgia (4) PTSD (post-traumatic stress disorder) (5) Hypokalemia (6) Leukocytosis (7) Intractable headache Goals to Promote Your Health * To prevent worsening of your condition and complications * To maintain your health at the optimal level Directions to Meet Your Goals Take your medications as prescribed Follow your dietary instruction Follow activity as directed Keep your appointments as scheduled Take your immunizations and boosters as scheduled If your symptoms worsen call your PCP, if no PCP go to Urgent Care Center or Emergency Room Smoking is Dangerous to Your Health. Avoid second hand smoke Call the 24-hour hour crisis hotline for domestic abuse at Salomón Herrera MD Aug 04, 2016 14:21
== END 2016-08-04 20:56 | disposition home or self-care (01) ==
LOC: NEPE 07:19 → NEDA 13:49 → NEPGCP 08-04 00:37
PROVIDERS: ADMIT Family Medicine; ATTEND Family Medicine
DX: G43.909 Migraine, unspecified, not intractable, without status migrainosus (principal); E87.1 Hypo-osmolality and hyponatremia; I10 Essential (primary) hypertension; E87.6 Hypokalemia; D72.829 Elevated white blood cell count, unspecified; F12.90 Cannabis use, unspecified, uncomplicated; F17.200 Nicotine dependence, unspecified, uncomplicated; F32.9 Major depressive disorder, single episode, unspecified; F43.10 Post-traumatic stress disorder, unspecified; G51.0 Bell's palsy; H91.92 Unspecified hearing loss, left ear; Z86.73 Personal history of transient ischemic attack (TIA), and cerebral infarction without residual deficits
CPT/HCPCS: 62270; 70544; 70553; 77003; 80048; 82945; 84157; 85025; 85610; 85730; 87070; 87205; 87804; 89051; 96361; 96374; 96375; 99285; A9579; G0378; J1170; J2270; J2405; J2550; J2765; J3480; J7030; 76937

== ENCOUNTER 2016-09-07 16:37 | Emergency (ER) | payer OTHER ==
[~2016-09-07] VITALS: Ht 157.5 cm; Wt 70.0 kg
[~2016-09-07 16:37] MED LIST changes: +PROM12.54 PO; +SUMA6P SQ
[2016-09-07 16:38] VITALS: BP 136/92; PULSE 86; RESP 20; TEMP 98.3; O2SAT 96
[2016-09-07] MEDS ORDERED: diphenhydrAMINE HCL 50 MG/ML VIAL IM ONE (17:00)
[2016-09-07] MEDS ORDERED: METOCLOPRAMIDE HCL 10 MG/2 ML VIAL IM ONE (17:00)
--- NOTE | 2016-09-07 17:01 | PD ---
HPI Chief Complaint: Headache Time Seen by Provider: 16:50 Travel History International Travel<30 days: No Contact w/Intl Traveler<30days: No Traveled to known affect area: No History of Present Illness HPI Patient is a 56-year-old female who presents emergency department with complaint of headache. Patient has a history of headache, migraine. Presents the emergency department with complaint of similar headache. 5 days ago patient had gradual onset of right sided retro-orbital headache with associated photophobia, phonophobia, nausea but no vomiting. Patient states that she has been using [id number] agents without improvement of her headache. She has had to come to the emergency department several times historically for complaint of headache. This is not the worse headache of her life. No fevers, chills, neck pain. 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) Endocrine: No Gastrointestinal Disorders: No Genitourinary: No Hypertension: Yes Immune Disorder: No Implanted Vascular Access Dvce: No Musculoskeletal: No Neurologic: Yes (AREVALO'S PALSY) Psychiatric: Yes Reproductive: No Respiratory: No Migraines: Yes : 3 Para: 1 Miscarriage: 0 : 2 Tubal Ligation: Yes (2000) Past Surgical History Body Medical Devices: SUICIDAL IDEATIONS Gynecologic Surgery: Yes (TUBAL LIGATION) Hysterectomy: Yes (TUBAL LIGATION) Other Surgery: No Social History Alcohol Use: No Tobacco Use: No (WEARS A PATCH ) Substance Use: No Allergies-Medications (Allergen,Severity, Reaction): Coded Allergies: Aspirin (Verified Allergy, Mild, 08/03/16) Ergotamine Tartrate (Verified Allergy, Mild, 08/03/16) Sulfa (Verified Allergy, Mild, 08/03/16) Toradol (Verified Allergy, Mild, 08/03/16) Reported Meds & Prescriptions Reported Meds & Active Scripts Active Promethazine (Promethazine HCl) 12.5 Mg Tab 12.5 Mg PO Q6H PRN Reported Imitrex Inj (Sumatriptan Succinate) 6 Mg/0.5 Ml Inj 6 Mg SQ ONCE PRN May repeat dose in 1 hour if needed. Geodon (Ziprasidone) 80 Mg Cap Unknown Dose PO BID Klonopin (Clonazepam) 0.5 Mg Tab 0.5 Mg PO TID Review of Systems Except as stated in HPI: all other systems reviewed are Neg Physical Exam Narrative GENERAL: Well-appearing female sitting in the family room with sunglasses on in no acute distress SKIN: Warm and dry. HEAD: Normocephalic. EYES: Pupils equal and round. 3 mm. EOMI. No scleral icterus. No injection or drainage. ENT: No nasal bleeding or discharge. Mucous membranes pink and moist. NECK: Supple CARDIOVASCULAR: Regular rate and rhythm. RESPIRATORY: No accessory muscle use. MUSCULOSKELETAL: No obvious deformities. No clubbing. No cyanosis. No edema. NEUROLOGICAL: Awake and alert. No obvious cranial nerve deficits. Motor grossly within normal limits. Normal speech. PSYCHIATRIC: Appropriate mood and affect; insight and judgment normal. Data Data Last Documented VS Vital Signs Date Time Temp Pulse Resp B/P Pulse Ox O2 Delivery O2 Flow Rate FiO2 09/07/16 16:46 99 Room Air 09/07/16 16:38 98.3 86 20 136/92 Orders Oximetry (09/07/16 16:54) Diphenhydramine Inj (Benadryl Inj) (09/07/16 17:00) Metoclopramide Inj (Reglan Inj) (09/07/16 17:00) Prochlorperazine Inj (Compazine Inj) (09/07/16 18:00) MDM Medical Decision Making Medical Screen Exam Complete: Yes Emergency Medical Condition: Yes Medical Record Reviewed: Yes Differential Diagnosis 56 year old female with history of migraine here with complaint of same. Differential includes migraine headache, tension headache, cluster headache. Patient has been afebrile, no neck stiffness or noctural headaches, is well- appearing, with a normal neurologic examination. This makes infection and subarachnoid hemorrhage very unlikely. There is not enough evidence to pursue these diagnoses. Narrative Course Patient placed on monitor. Given Benadryl, Reglan IM with some improvement but still quite symptomatic. Requesting Phenergan but unfortunately this is on pharmacy backorder and therefore was given Compazine with improvement and discharged home. Diagnosis Primary Impression: Migraine headache Qualified Code: G43.109 - Migraine with aura and without status migrainosus, not intractable Referrals: Primary Care Physician as needed Patient Instructions: Acute Headache (ED), General Instructions Additional Instructions: Tylenol, ibuprofen, Aleve, Excedrin Migraine as needed for headache. Follow-up with primary care provider if symptoms persist and return to the ER for the warning signs discussed. Med/Other Pt SpecificInfo: No Change to Meds Disposition: 01 DISCHARGE HOME Condition: Stable Bertha Calderon MD Sep 07, 2016 17:01
[2016-09-07] MEDS ORDERED: PROCHLORPERAZINE INJ 10 MG/2 ML VIAL IM ONE (18:00)
== END 2016-09-07 19:17 | disposition home or self-care (01) ==
LOC: NEPE 16:37
DX: G43.109 Migraine with aura, not intractable, without status migrainosus (principal)
CPT/HCPCS: 96372; 99283; J0780; J1200; J2765

== ENCOUNTER 2016-09-24 14:17 | Emergency (ER) | payer OTHER ==
[~2016-09-24] VITALS: Ht 157.5 cm; Wt 65.0 kg
[2016-09-24 14:27] VITALS: BP 124/86; PULSE 64; RESP 18; TEMP 98.5; O2SAT 98
[2016-09-24] MEDS ORDERED: diphenhydrAMINE HCL 50 MG/ML VIAL IM STA (14:36)
--- NOTE | 2016-09-24 14:37 | PD ---
HPI Chief Complaint: headache Time Seen by Provider: 14:33 Travel History International Travel<30 days: No Contact w/Intl Traveler<30days: No History of Present Illness HPI Patient comes in for evaluation of migraine headache that began 5 days ago. Patient states that the right frontal lobe and reports feels like her typical migraines. Patient reported associated nausea but denies any vomiting. Patient last saw her neurologist about a month and a half ago. Patient states she has been taking her Geodon for her headaches but has not been taking her Imitrex as it "does not work well" for her headaches. Patient reports associated photophobia. Denies any neck pain, fevers, shortness of breath, chest pain, trauma, dizziness, change in vision, or numbness or tingling anywhere. This is not the worst headache of her life. Patient is requesting Dilaudid. 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) Endocrine: No Gastrointestinal Disorders: No Genitourinary: No Hypertension: Yes Immune Disorder: No Implanted Vascular Access Dvce: No Musculoskeletal: No Neurologic: Yes (AREVALO'S PALSY) Psychiatric: Yes Reproductive: No Respiratory: No Migraines: Yes : 3 Para: 1 Miscarriage: 0 : 2 Tubal Ligation: Yes (2000) Past Surgical History Body Medical Devices: SUICIDAL IDEATIONS Gynecologic Surgery: Yes (TUBAL LIGATION) Hysterectomy: Yes (TUBAL LIGATION) Other Surgery: No Social History Alcohol Use: No Tobacco Use: No (WEARS A PATCH ) Substance Use: No Allergies-Medications (Allergen,Severity, Reaction): Coded Allergies: Aspirin (Verified Allergy, Mild, 09/24/16) Ergotamine Tartrate (Verified Allergy, Mild, 09/24/16) Sulfa (Verified Allergy, Mild, 09/24/16) Toradol (Verified Allergy, Mild, 09/24/16) Reported Meds & Prescriptions Reported Meds & Active Scripts Active Promethazine (Promethazine HCl) 12.5 Mg Tab 12.5 Mg PO Q6H PRN Reported Imitrex Inj (Sumatriptan Succinate) 6 Mg/0.5 Ml Inj 6 Mg SQ ONCE PRN May repeat dose in 1 hour if needed. Geodon (Ziprasidone) 80 Mg Cap Unknown Dose PO BID Klonopin (Clonazepam) 0.5 Mg Tab 0.5 Mg PO TID Review of Systems Except as stated in HPI: all other systems reviewed are Neg Physical Exam Narrative GENERAL: Well-developed, overly nourished, in no acute distress, and non-ill appearing. SKIN: Focused skin assessment warm and dry. HEAD: Atraumatic. Normocephalic. EYES: Pupils equal and round. EOMI. No scleral icterus. No injection or drainage. ENT: No nasal bleeding or discharge. Mucous membranes pink and moist. NECK: Trachea midline. Supple. No nuclear rigidity. CARDIOVASCULAR: Radial pulses 2+, and equal bilaterally. RESPIRATORY: No accessory muscle use. No respiratory distress. MUSCULOSKELETAL: No obvious deformities. No clubbing. No cyanosis. No edema. Full range of motion. NEUROLOGICAL: Awake and alert. No obvious cranial nerve deficits. Motor grossly within normal limits. Normal speech. PSYCHIATRIC: Appropriate mood and affect; insight and judgment normal. Data Data Last Documented VS Vital Signs Date Time Temp Pulse Resp B/P Pulse Ox O2 Delivery O2 Flow Rate FiO2 09/24/16 16:30 59 18 133/82 97 Room Air 09/24/16 14:27 98.5 Orders Prochlorperazine Inj (Compazine Inj) (09/24/16 14:45) Diphenhydramine Inj (Benadryl Inj) (09/24/16 14:45) Diphenhydramine Inj (Benadryl Inj) (09/24/16 14:36) Metoclopramide Inj (Reglan Inj) (09/24/16 16:30) MDM Medical Decision Making Medical Screen Exam Complete: Yes Emergency Medical Condition: Yes Differential Diagnosis Migraine headache, subarachnoid hemorrhage, medical complaints, malingering, drug-seeking, other Narrative Course 1610 patient sleeping soundly in bed in no acute distress. Patient was easily awoken reports headache is improved but still there. Patient was given a dose of Reglan prior to discharge. Patient was instructed to follow-up with her neurologist in the next day or 2 to have her medication adjusted. Patient agreed with plan of care. The patient looks great and is in no significant objective discomfort currently. Headache appears consistent with patients typical migraine. Exam is unremarkable. The patient is in no distress and the patients neurological exam is normal, neck is supple and without meningismus. The headache is not consistent with meningitis or infection, nor is it consistent with intracranial bleed (SAH etc.), carotid dissection, nor mass by history and examination. Medication and instructions to rest in a cool dark quite place were discussed with the patient. Also, outpatient follow up was instructed. The patient was instructed to return as needed or if symptoms changed or worsened, fever developed or inability to tolerate fluids. The patient agreed with plan. Patient in no obvious distress upon re-evaluation. I discussed patient with Dr. Humphreys, prior to discharge, her who is in agreement with plan of care and disposition. Any questions/concerns in reference to patient diagnosis/ condition discussed and clarified prior to patient's discharge. Reinforced sheer importance of close follow up with patient's primary physician or primary care clinic. Instructed patient to return to ED immediately, if symptoms return/ worsen. Pt showed understanding of above instructions. Further instructions and recommendations were detailed in discharge paperwork. Pt ambulated without difficulty out of ED at discharge. Diagnosis Primary Impression: Migraine headache Qualified Code: G43.909 - Migraine without status migrainosus, not intractable , unspecified migraine type Patient Instructions: General Instructions, Migraine Headache (ED) Additional Instructions: Follow-up with your primary care physician and neurologist in 1-2 days for reevaluation. Take your migraine medication as prescribed. Return to the emergency department if symptoms get worse. Disposition: 01 DISCHARGE HOME Condition: Stable Sam Weaver Sep 24, 2016 14:37
[2016-09-24] MEDS ORDERED: PROCHLORPERAZINE INJ 10 MG/2 ML VIAL IM ONE (14:45)
[2016-09-24] MEDS ORDERED: diphenhydrAMINE HCL 50 MG/ML VIAL IV PUSH ONE (14:45)
[2016-09-24 16:30] VITALS: BP 133/82; PULSE 59; RESP 18; O2SAT 97
[2016-09-24] MEDS ORDERED: METOCLOPRAMIDE HCL 10 MG/2 ML VIAL IM ONE (16:30)
== END 2016-09-24 17:06 | disposition home or self-care (01) ==
LOC: NEPE 14:17
DX: G43.909 Migraine, unspecified, not intractable, without status migrainosus (principal); I10 Essential (primary) hypertension; G51.0 Bell's palsy; H91.92 Unspecified hearing loss, left ear; Z86.73 Personal history of transient ischemic attack (TIA), and cerebral infarction without residual deficits
CPT/HCPCS: 96372; 99283; J0780; J1200; J2765

== ENCOUNTER 2016-11-10 06:01 | Emergency (ER) | payer OTHER ==
[~2016-11-10] VITALS: Ht 157.5 cm; Wt 66.0 kg
[2016-11-10 06:03] VITALS: BP 192/112; PULSE 78; RESP 18; TEMP 98.1; O2SAT 98
[2016-11-10] MEDS ORDERED: VERA120T3 PO (06:22)
[2016-11-10] MEDS ORDERED: SODIUM CHLOR 0.9% 1000 ML INJ 1,000 ML IV ONE (06:25)
[2016-11-10] MEDS ORDERED: diphenhydrAMINE HCL 50 MG/ML VIAL IVP ONE (06:30)
[2016-11-10] MEDS ORDERED: PROCHLORPERAZINE INJ 10 MG/2 ML VIAL IVP ONE (06:30)
[2016-11-10] MEDS ORDERED: ACETAMINOPHEN 325 MG TAB PO ONE (06:30)
--- NOTE | 2016-11-10 06:37 | PD ---
HPI Chief Complaint: Headache Time Seen by Provider: 06:17 Travel History International Travel<30 days: No Contact w/Intl Traveler<30days: No Traveled to known affect area: No History of Present Illness HPI 56-year-old female arrives complaining of right parietal occipital headache for about 5 days. She's also had a right retro-orbital headache for about 2 days. Pain can be severe. Has a stabbing quality. She's had multiple similar episodes previously. She carries a diagnosis of cluster headaches. No fever or vomiting. No neck pain. 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) Endocrine: No Gastrointestinal Disorders: No Genitourinary: No Hypertension: Yes Immune Disorder: No Implanted Vascular Access Dvce: No Musculoskeletal: No Neurologic: Yes (AREVALO'S PALSY left side) Psychiatric: Yes Reproductive: No Respiratory: No Migraines: Yes ?: Not : 3 Para: 1 Miscarriage: 0 : 2 Tubal Ligation: Yes (2000) Past Surgical History Body Medical Devices: SUICIDAL IDEATIONS Gynecologic Surgery: Yes (TUBAL LIGATION) Hysterectomy: Yes (TUBAL LIGATION) Other Surgery: No Social History Alcohol Use: No Tobacco Use: No (WEARS A PATCH ) Substance Use: No Allergies-Medications (Allergen,Severity, Reaction): Coded Allergies: Aspirin (Verified Allergy, Mild, 11/10/16) Ergotamine Tartrate (Verified Allergy, Mild, 11/10/16) Sulfa (Verified Allergy, Mild, 11/10/16) Toradol (Verified Allergy, Mild, 11/10/16) Reported Meds & Prescriptions Reported Meds & Active Scripts Active Promethazine (Promethazine HCl) 12.5 Mg Tab 12.5 Mg PO Q6H PRN Reported Verapamil (Verapamil HCl) 120 Mg Tab 120 Mg PO BID Imitrex Inj (Sumatriptan Succinate) 6 Mg/0.5 Ml Inj 6 Mg SQ ONCE PRN May repeat dose in 1 hour if needed. Geodon (Ziprasidone) 80 Mg Cap Unknown Dose PO BID Review of Systems Except as stated in HPI: all other systems reviewed are Neg General / Constitutional: No: Fever, Chills Physical Exam Narrative GENERAL: 56 yo F, pleasant, mild distress SKIN: Warm and dry. HEAD: Atraumatic. Normocephalic. EYES: Pupils equal and round. No scleral icterus. No injection or drainage. ENT: No nasal bleeding or discharge. Mucous membranes pink and moist. NECK: Trachea midline. No JVD. CARDIOVASCULAR: Regular rate and rhythm. RESPIRATORY: No accessory muscle use. Clear to auscultation. Breath sounds equal bilaterally. GASTROINTESTINAL: Abdomen soft, non-tender, nondistended. Hepatic and splenic margins not palpable. MUSCULOSKELETAL: Extremities without clubbing, cyanosis, or edema. No obvious deformities. NEUROLOGICAL: Awake and alert. No obvious cranial nerve deficits. Motor grossly within normal limits. Five out of 5 muscle strength in the arms and legs. Normal speech. PSYCHIATRIC: Appropriate mood and affect; insight and judgment normal. Data Data Last Documented VS Vital Signs Date Time Temp Pulse Resp B/P Pulse Ox O2 Delivery O2 Flow Rate FiO2 11/10/16 06:03 98.1 78 18 192/112 98 VS reviewed Orders Ecg Monitoring (11/10/16 06:25) Iv Access Insert/Monitor (11/10/16 06:25) Oximetry (11/10/16 06:25) Oxygen Administration (11/10/16 06:25) Sodium Chloride 0.9% Flush (Ns Flush) (11/10/16 06:30) Acetaminophen (Tylenol) (11/10/16 06:30) Prochlorperazine Inj (Compazine Inj) (11/10/16 06:30) Diphenhydramine Inj (Benadryl Inj) (11/10/16 06:30) Sodium Chlor 0.9% 1000 Ml Inj (Ns 1000 M (11/10/16 06:25) MDM Medical Decision Making Medical Screen Exam Complete: Yes Emergency Medical Condition: Yes Medical Record Reviewed: Yes Differential Diagnosis cluster headache, migraine, tension, meningitis, ICH Narrative Course Compazine, benadryl, tylenol, NS started. Reassess by oncoming provider with disposition pending. Disposition: DISCHARGE HOME Condition: Stable Alex Buenrostro MD November 10, 2016 06:37
[2016-11-10] MEDS: SODIUM CHLORIDE 0.9% FLUSH 10 ML FLUSH IVF PRN ×3 (06:51→08:09)
[2016-11-10 07:00] VITALS: BP 156/88; PULSE 68; RESP 18; TEMP 97.8; O2SAT 98
[2016-11-10] MEDS ORDERED: METOCLOPRAMIDE INJ 10 MG in SODIUM CHLORIDE 0.9% INJ 50 ML IV ONE (07:30)
[2016-11-10] MEDS ORDERED: HYDROmorphone HCL PF 1 MG/ML VIAL IV PUSH ONE (07:30)
--- NOTE | 2016-11-10 07:30 | PD ---
Physical Exam Narrative Received sign out to reevaluate patient. 56yo F with PMH of migraine and cluster headaches here with c/o of her usual headache. Pt was given compazine and benadryl and oxygen. States it helped a little but only dilaudid works. I reviewed her records and she has been here multiple times for this headache. No red flags. No fever, meningeal signs, focal weakness or numbness. Pt is well appearing. Initially did order 0.5mg of dilaudid but cancelled it before pt got it. Instead, ordered reglan which pt has had before. Pt reevaluated at bedside and is sleeping comfortably. Headache has improved. Pt is well appearing. Return precautions given. Data Data Last Documented VS Vital Signs Date Time Temp Pulse Resp B/P Pulse Ox O2 Delivery O2 Flow Rate FiO2 11/10/16 07:41 17 11/10/16 07:00 98 Nasal Cannula 3 11/10/16 07:00 97.8 68 156/88 Orders Ecg Monitoring (11/10/16 06:25) Iv Access Insert/Monitor (11/10/16 06:25) Oximetry (11/10/16 06:25) Oxygen Administration (11/10/16 06:25) Sodium Chloride 0.9% Flush (Ns Flush) (11/10/16 06:30) Acetaminophen (Tylenol) (11/10/16 06:30) Prochlorperazine Inj (Compazine Inj) (11/10/16 06:30) Diphenhydramine Inj (Benadryl Inj) (11/10/16 06:30) Sodium Chlor 0.9% 1000 Ml Inj (Ns 1000 M (11/10/16 06:25) Hydromorphone Pf Inj (Dilaudid Pf Inj) (11/10/16 07:30) Metoclopramide Inj (Reglan Inj) (11/10/16 07:30) MDM Supervised Visit with KAT: No Diagnosis Primary Impression: Migraine headache Qualified Code: G43.909 - Migraine without status migrainosus, not intractable , unspecified migraine type Patient Instructions: General Instructions Departure Forms: Tests/Procedures Additional Instruction: Please follow up with your PMD in 3-7 days. Return to the ED if symptoms worsen. Med/Other Pt SpecificInfo: Prescription(s) given Scripts Acetaminophen (Acetaminophen Extra Strength)500 Mg Cig794 Mg PO Q6H PRN (PAIN SCALE 1 TO 7) #20 TAB Ref 0 Prov:Kennedi Humphreys DO 11/10/16 Disposition: 01 DISCHARGE HOME Condition: Stable Kennedi Humphreys DO November 10, 2016 07:30
[2016-11-10 07:41] VITALS: RESP 17
[2016-11-10] MEDS ORDERED: ACET500T36 PO (09:27)
[2016-11-10 09:47] VITALS: BP 138/86; TEMP 97.8
== END 2016-11-10 09:31 | disposition home or self-care (01) ==
LOC: NEPE 06:01
DX: G43.909 Migraine, unspecified, not intractable, without status migrainosus (principal); E11.9 Type 2 diabetes mellitus without complications; I10 Essential (primary) hypertension; H91.92 Unspecified hearing loss, left ear; Z86.59 Personal history of other mental and behavioral disorders; Z86.79 Personal history of other diseases of the circulatory system; Z86.69 Personal history of other diseases of the nervous system and sense organs
CPT/HCPCS: 96361; 96365; 96375; 99283; J0780; J1200; J2765; J7030

== ENCOUNTER 2016-12-12 21:28 | Emergency (ER) | payer OTHER ==
[~2016-12-12] VITALS: Ht 157.5 cm; Wt 67.0 kg
[~2016-12-12 21:28] MED LIST changes: +ACET500T36 PO; -CLON.5 PO; +VERA120T3 PO
[2016-12-12 21:31] VITALS: BP 170/87; PULSE 74; RESP 16; TEMP 98.3; O2SAT 97
[2016-12-12] MEDS ORDERED: SODIUM CHLOR 0.9% 1000 ML INJ 1,000 ML IV ONE (22:41)
[2016-12-12] MEDS ORDERED: HYDROmorphone HCL PF 1 MG/ML VIAL IV PUSH ONE (22:45)
[2016-12-12] MEDS ORDERED: SODIUM CHLORIDE 0.9% FLUSH 10 ML FLUSH IVF PRN (22:45)
[2016-12-12] MEDS ORDERED: ONDANSETRON HCL 4 MG/2 ML VIAL IV PUSH ONE (22:45)
--- NOTE | 2016-12-12 22:45 | PD ---
HPI Chief Complaint: Headache Time Seen by Provider: 22:41 Travel History International Travel<30 days: No Contact w/Intl Traveler<30days: No Traveled to known affect area: No History of Present Illness HPI 56-year-old female patient with history of cluster headaches and migraine headaches, has daily headaches and follows up with neurology for issues, has been on multiple medications to help with the headaches but states that she had ran out of her Imitrex and Fioricet today, and is having a 8 out of 10 headache which is sensitive to light and sounds. She states that these are her usual migraine headaches although this one has not gone away with her usual therapy and she was not able to get into see her primary care physician today. She denies any fevers, vomiting, or other symptoms. 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) Endocrine: No Gastrointestinal Disorders: No Genitourinary: No Hypertension: Yes Immune Disorder: No Implanted Vascular Access Dvce: No Musculoskeletal: No Neurologic: Yes (AREVALO'S PALSY left side) Psychiatric: Yes Reproductive: No Respiratory: No Migraines: Yes : 3 Para: 1 Miscarriage: 0 : 2 Tubal Ligation: Yes (2000) Past Surgical History Body Medical Devices: SUICIDAL IDEATIONS Gynecologic Surgery: Yes (TUBAL LIGATION) Hysterectomy: Yes (TUBAL LIGATION) Other Surgery: No Social History Alcohol Use: No Tobacco Use: No (WEARS A PATCH ) Substance Use: No Allergies-Medications (Allergen,Severity, Reaction): Coded Allergies: Aspirin (Verified Allergy, Mild, 12/12/16) Ergotamine Tartrate (Verified Allergy, Mild, 12/12/16) Sulfa (Verified Allergy, Mild, 12/12/16) Toradol (Verified Allergy, Mild, 12/12/16) Reported Meds & Prescriptions Reported Meds & Active Scripts Active Promethazine (Promethazine HCl) 12.5 Mg Tab 12.5 Mg PO Q6H PRN Reported Verapamil (Verapamil HCl) 120 Mg Tab 120 Mg PO BID Imitrex Inj (Sumatriptan Succinate) 6 Mg/0.5 Ml Inj 6 Mg SQ ONCE PRN May repeat dose in 1 hour if needed. Geodon (Ziprasidone) 80 Mg Cap Unknown Dose PO BID Review of Systems Except as stated in HPI: all other systems reviewed are Neg Physical Exam Narrative GENERAL: Well-developed middle age white female patient currently in mild distress. Awake and oriented 3. SKIN: Focused skin assessment warm/dry. HEAD: Atraumatic. Normocephalic. EYES: Pupils equal and round. No scleral icterus. No injection or drainage. ENT: No nasal bleeding or discharge. Mucous membranes pink and moist. NECK: Trachea midline. No JVD. Supple. CARDIOVASCULAR: Regular rate and rhythm. No murmur appreciated. RESPIRATORY: No accessory muscle use. Clear to auscultation. Breath sounds equal bilaterally. GASTROINTESTINAL: Abdomen soft, non-tender, nondistended. Hepatic and splenic margins not palpable. MUSCULOSKELETAL: No obvious deformities. No clubbing. No cyanosis. No edema. NEUROLOGICAL: Awake and alert. No obvious cranial nerve deficits. Motor grossly within normal limits. Normal speech. PSYCHIATRIC: Appropriate mood and affect; insight and judgment normal. Data Data Last Documented VS Vital Signs Date Time Temp Pulse Resp B/P Pulse Ox O2 Delivery O2 Flow Rate FiO2 12/12/16 22:47 66 20 99 Nasal Cannula 2 12/12/16 21:31 98.3 170/87 Orders Ecg Monitoring (12/12/16 22:41) Iv Access Insert/Monitor (12/12/16 22:41) Oximetry (12/12/16 22:41) Sodium Chloride 0.9% Flush (Ns Flush) (12/12/16 22:45) Sodium Chlor 0.9% 1000 Ml Inj (Ns 1000 M (12/12/16 22:41) Hydromorphone Pf Inj (Dilaudid Pf Inj) (12/12/16 22:45) Ondansetron Inj (Zofran Inj) (12/12/16 22:45) [facility] Medical Decision Making Medical Screen Exam Complete: Yes Emergency Medical Condition: Yes Medical Record Reviewed: Yes Differential Diagnosis Headachemigraine headache versus cluster headaches Narrative Course Considered chronic course of headaches, patient was given Toradol and IV fluids in the ER. On reevaluation of the patient at 11:50 PM, she states she feels a lot better. At this point, my plan would be to release her with symptomatic relief for migraine headaches and patient is also requesting a refill her Fioricet. She should follow-up with her primary care physician and neurologist regarding this issue. Return for any worsening in symptoms as needed. The plan has been discussed with her and she states understanding. Diagnosis Primary Impression: Migraine headache Med/Other Pt SpecificInfo: Prescription(s) given Scripts Bgxloldwnz-Tijbnmtbmocbo-Dfsoxblr (Fioricet)50-300-40 Mg Cap1-2 Cap PO Q6H PRN ( HEADACHE) #12 CAP Ref 0 Prov:Ruby Hampton MD 12/12/16 Disposition: 01 DISCHARGE HOME Condition: Stable Ruby Hampton MD Dec 12, 2016 22:45
[2016-12-12 22:47] VITALS: PULSE 66; RESP 20; O2SAT 99
[2016-12-12] MEDS ORDERED: BUTA1CAP PO (23:52)
[2016-12-13 00:05] VITALS: RESP 16
[2016-12-13 00:36] VITALS: BP 132/88
== END 2016-12-13 00:38 | disposition home or self-care (01) ==
LOC: NEPE 21:28
DX: G43.909 Migraine, unspecified, not intractable, without status migrainosus (principal); I10 Essential (primary) hypertension; G45.9 Transient cerebral ischemic attack, unspecified; G51.0 Bell's palsy
CPT/HCPCS: 96361; 96374; 96375; 99284; J1170; J2405; J7030

== ENCOUNTER 2017-01-15 15:52 | Emergency (ER) | payer OTHER ==
[~2017-01-15] VITALS: Ht 157.5 cm; Wt 68.0 kg
[~2017-01-15 15:52] MED LIST changes: -ACET500T36 PO; +BUTA1CAP PO
[2017-01-15 15:54] VITALS: BP 104/102; PULSE 80; RESP 15; TEMP 98.4; O2SAT 98
[2017-01-15 16:13] VITALS: BP 160/88; PULSE 72
== END 2017-01-15 18:52 | disposition left against medical advice (07) ==
LOC: NED 15:52
DX: R51 Headache (principal); Z53.21 Procedure and treatment not carried out due to patient leaving prior to being seen by health care provider

== ENCOUNTER 2017-02-05 14:39 | Emergency (ER) | payer OTHER ==
[~2017-02-05] VITALS: Ht 157.5 cm; Wt 70.0 kg
[2017-02-05 14:41] VITALS: BP 177/100; PULSE 71; RESP 16; TEMP 98.7; O2SAT 97
[2017-02-05] MEDS ORDERED: TYLETAB34 PO ×2 (17:49→20:35)
[2017-02-05 17:50] VITALS: BP 159/98; PULSE 64; RESP 18; TEMP 98.2; O2SAT 100
[2017-02-05] MEDS ORDERED: SODIUM CHLOR 0.9% 1000 ML INJ 1,000 ML IV ONE (18:43)
[2017-02-05] MEDS ORDERED: MORPHINE SULFATE 8 MG/ML INJ IV PUSH ONE (18:45)
[2017-02-05] MEDS ORDERED: PROMETHAZINE INJ 25 MG/ML VIAL IM ONE (18:45)
[2017-02-05] MEDS ORDERED: diphenhydrAMINE HCL 50 MG/ML VIAL IVP ONE (18:45)
[2017-02-05] MEDS ORDERED: SODIUM CHLORIDE 0.9% FLUSH 10 ML FLUSH IVF PRN (18:45)
--- NOTE | 2017-02-05 19:05 | PD ---
HPI Chief Complaint: Headache Time Seen by Provider: 18:33 Travel History International Travel<30 days: No Contact w/Intl Traveler<30days: No Traveled to known affect area: No History of Present Illness HPI 56-year-old female arrives to the ER complaining of right pressure of orbital cephalgia consistent with migraines, and diagnosis she carries currently, for the past 5 days. She took Fioricet sumatriptan and Phenergan at home which was not helpful. Photophobia is reported. Onset gradual. Severity moderate. She has a history of migraines and states today's presentation is typical for her. She reports in the past IM Phenergan, Benadryl IV fluids and "pain medication" works best for her. No neck stiffness. PFSH Past Medical History Blood Disorders: No Anxiety: Yes Depression: Yes Heart Rhythm Problems: No Cancer: No Cardiovascular Problems: Yes High Cholesterol: No Chest Pain: No Congestive Heart Failure: No Cerebrovascular Accident: Yes (TIA X 2) Diabetes: Yes (PATIENT STATES STOPPED GLUCOPHAGE "A LONG TIME AGO") Diminished Hearing: No Endocrine: No Gastrointestinal Disorders: No Genitourinary: No Headaches: Yes (migraines) Hypertension: Yes Immune Disorder: No Implanted Vascular Access Dvce: No Musculoskeletal: No Neurologic: Yes (AREVALO'S PALSY left side) Psychiatric: Yes Reproductive: No Respiratory: No Migraines: Yes ?: Not Menopausal: Yes : 2 Para: 1 Miscarriage: 0 : 1 Tubal Ligation: Yes (2000) Past Surgical History Body Medical Devices: SUICIDAL IDEATIONS Gynecologic Surgery: Yes (TUBAL LIGATION) Hysterectomy: Yes (TUBAL LIGATION) Other Surgery: No Social History Alcohol Use: No Tobacco Use: Yes Substance Use: No Allergies-Medications (Allergen,Severity, Reaction): Coded Allergies: Sulfa (Sulfonamide Antibiotics) (Verified Allergy, Mild, 02/05/17) aspirin (Verified Allergy, Mild, 02/05/17) dihydroergotamine (Verified Allergy, Mild, 02/05/17) ketorolac (Verified Allergy, Mild, 02/05/17) Reported Meds & Prescriptions Reported Meds & Active Scripts Active Tylenol-Codeine #3 (Acetaminophen-Codeine) 300-30 mg Tab 1 Tab PO Q4H PRN Fioricet (Uiyiaptmlv-Sahlcxbghluli-Wcutbjod) 50-300-40 Mg Cap 1-2 Cap PO Q6H PRN Promethazine (Promethazine HCl) 12.5 Mg Tab 12.5 Mg PO Q6H PRN Reported Verapamil (Verapamil HCl) 120 Mg Tab 120 Mg PO BID Imitrex Inj (Sumatriptan Succinate) 6 Mg/0.5 Ml Inj 6 Mg SQ ONCE PRN May repeat dose in 1 hour if needed. Geodon (Ziprasidone) 80 Mg Cap Unknown Dose PO BID Review of Systems Except as stated in HPI: all other systems reviewed are Neg General / Constitutional: Positive: Fever Physical Exam Narrative GENERAL: 56-year-old female pleasant well-nourished well-developed, wearing sunglasses in the exam room with the lights on. SKIN: Warm and dry. HEAD: Atraumatic. Normocephalic. EYES: Pupils equal and round to light. No scleral icterus. No injection or drainage. ENT: No nasal bleeding or discharge. Mucous membranes pink and moist. NECK: Trachea midline. No JVD. CARDIOVASCULAR: Regular rate and rhythm. RESPIRATORY: No accessory muscle use. Clear to auscultation. Breath sounds equal bilaterally. GASTROINTESTINAL: Abdomen soft, non-tender, nondistended. Hepatic and splenic margins not palpable. MUSCULOSKELETAL: Extremities without clubbing, cyanosis, or edema. No obvious deformities. NEUROLOGICAL: Awake and alert. No obvious cranial nerve deficits. Motor grossly within normal limits. Five out of 5 muscle strength in the arms and legs. Normal speech. PSYCHIATRIC: Appropriate mood and affect; insight and judgment normal. Data Data Last Documented VS Vital Signs Date Time Temp Pulse Resp B/P Pulse Ox O2 Delivery O2 Flow Rate FiO2 02/05/17 19:14 71 16 144/88 97 Room Air 02/05/17 17:50 98.2 2 Vital signs reviewed Orders Ecg Monitoring (02/05/17 18:43) Iv Access Insert/Monitor (02/05/17 18:43) Oximetry (02/05/17 18:43) Sodium Chloride 0.9% Flush (Ns Flush) (02/05/17 18:45) Diphenhydramine Inj (Benadryl Inj) (02/05/17 18:45) Sodium Chlor 0.9% 1000 Ml Inj (Ns 1000 M (02/05/17 18:43) Promethazine Inj (Phenergan Inj) (02/05/17 18:45) Morphine Inj (Morphine Inj) (02/05/17 18:45) Hydromorphone Pf Inj (Dilaudid Pf Inj) (02/05/17 20:00) [facility] Medical Decision Making Medical Screen Exam Complete: Yes Emergency Medical Condition: Yes Medical Record Reviewed: Yes Differential Diagnosis Migraine, cluster headache, tension headache, temporal arteritis, meningitis, intracranial hemorrhage Narrative Course The patient has a migraine headache. She has been seen here before numerous times for similar complaint. She reports that her presentation today is consistent with priors. IV fluids, Benadryl Phenergan and 5 mg IV morphine have conferred sufficient pain relief for the patient to be discharged. Return precautions discussed. Diagnosis Primary Impression: Migraine headache Qualified Code: G43.909 - Migraine without status migrainosus, not intractable , unspecified migraine type Referrals: Primary Care Physician 2 days Additional Instructions: You have a choice when it comes to health care, and we are glad that you chose [facility]. Hopefully, we have met your expectations on today's visit. You are welcome to return to [facility] at any time, as we are committed to meeting the health care needs of our community. Med/Other Pt SpecificInfo: No Change to Meds Scripts Acetaminophen-Codeine (Tylenol-Codeine #3)300-30 mg Tab1 Tab PO Q4H PRN (PAIN) # 10 TAB Ref 0 Prov:Alex Buenrostro MD 02/05/17 Disposition: 01 DISCHARGE HOME Condition: Stable Alex Buenrostro MD Feb 05, 2017 19:05
[2017-02-05 19:13] VITALS: RESP 16; O2SAT 98
[2017-02-05 19:14] VITALS: BP 144/88; PULSE 71; RESP 16; O2SAT 97
[2017-02-05] MEDS ORDERED: HYDROmorphone HCL PF 1 MG/ML VIAL IV PUSH ONE (20:00)
== END 2017-02-05 21:46 | disposition home or self-care (01) ==
LOC: NEPD 14:39
DX: G43.909 Migraine, unspecified, not intractable, without status migrainosus (principal); H53.149 Visual discomfort, unspecified; Z86.73 Personal history of transient ischemic attack (TIA), and cerebral infarction without residual deficits; E11.9 Type 2 diabetes mellitus without complications; I10 Essential (primary) hypertension; G51.0 Bell's palsy; Z72.0 Tobacco use
CPT/HCPCS: 96372; 96374; 96375; 99284; J1170; J1200; J2270; J2550; J7030